=== PATIENT | male | born 1970 | race Caucasian/White ===

== ENCOUNTER → 2017-03-08 | Outpatient (CLI) | payer OTHER, BC ==
--- NOTE | 2017-03-08 10:42 | RADIOLOGY REPORT PS360 ---
CHEST(2 VIEWS-NOT PORTABLE) HISTORY: CHOKING EPISODE,SYNCOPE ORDERING PHYSICIAN: JEOVANNY MANUEL APRN PATIENT AGE: 46 years COMPARISON: None available FINDINGS: The cardiomediastinal silhouette and pulmonary vascularity are within normal limits. A nodular opacity is noted in the right lung base at the antral aspect of the right sixth rib measuring 16 x 9 mm. The remaining lungs are clear. Right hemidiaphragm is slightly elevated. No acute bony anomalies. IMPRESSION: 1. No acute finding. 2. Right basilar nodular opacity. Consider CT without and with contrast for more thorough evaluation
== END ==
LOC: RAD 09:23
DX: R09.89 Other specified symptoms and signs involving the circulatory and respiratory systems (principal); R55 Syncope and collapse

== ENCOUNTER 2017-03-26 21:12 | Observation (INO) | payer BC ==
[~2017-03-26] VITALS: Ht 167.6 cm; Wt 109.9 kg
[2017-03-26 21:21] VITALS: BP 180/109
[2017-03-26] MEDS ORDERED: AMLODIPINE BESY PO (21:28)
[2017-03-26 21:50] LABS: URINE BILIRUBIN - DIPSTICK NEGATIVE (NEG); URINE BLOOD 1+ (NEG)
[2017-03-26 21:53] LABS: HEMOGLOBIN 16.3 g/dL (14.1-18.0); LYMPH # 2.9 K/mm3 (0.7-4.5); LYMPH % 22.4 % (10-50)
[2017-03-26 22:13] LABS: URINE SQUAMOUS CELLS OC #/hpf (OCC)
--- NOTE | 2017-03-26 23:12 | RADIOLOGY REPORT PS360 ---
CT ABD PELVIS W/O CONTRAST HISTORY: PAIN epigastric pain past 3 days Patient Age: 46 years: Male Ordering Physician: Robinson Rush MD TECHNIQUE: Helical CT scans abdomen pelvis with no oral nor IV contrast utilized. COMPARISON :Previous CT abdomen and pelvis from November 2008 FINDINGS . Lung bases appear clear. Heart normal size. Liver. Very diffuse fatty changes no focal lesions. No bili ductal dilatation Spleen unremarkable. Pancreas satisfactory. Common duct appears normal to the head of pancreas. .* Gallbladder. 7 mm calcification in neck of gallbladder at cystic duct. Gallbladder is not dilated only mildly distended. No inflammation the gallbladder as of yet.. Warrants follow-up ultrasound preferably in a.m.. This still may be difficult to visualize but is clearly present. Correlation with clinical history required as well. His alkaline phosphatase elevated? Kidneys no definitive calculi.. There may be a small less than 1 mm calculus at the lower portion left kidney axial image 52. No urinary tract obstruction. No lesions evident. Pelvis. The bladder appears satisfactory. No pelvic masses or adenopathy. No retroperitoneal nor mesenteric adenopathy.No free fluid at the pelvis. GI tract. Minimal stool throughout the large bowel. Small bowel normal caliber no dilatation. No significant findings. Lung Appendix visualized & normal. Osseous but no significant findings. Early marginal osteophytes spine Minimal triangular density posterior to the umbilicus may reflect previous umbilical hernia repair correlation required. IMPRESSION: There is a 7 mm gallstone at gallbladder neck, likely within cystic duct itself. Gallbladder is not inflamed or significant dilated. Only mildly distended currently. . No additional calcified stones seen within gallbladder. Findings Warrants follow-up gallbladder ultrasound., (But this stone may be difficult to visualize on ultrasound due to far medial position within region of cystic duct, rather than floating within the gallbladder.)
--- NOTE | 2017-03-26 23:49 | Emergency Room Report ---
History of Present Illness Time Seen by [id number] Presenting Problem in Triage Pt arrived:Walked Presenting Problem:C/O EPIGASTRIC PAIN X 3 DAYS. DENIES VOMITING AND HAS FREQUENT BMS. HAS HAD THIS PROBLEM OFF AND ON FOR 1 YEAR. 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 N Clinical Suspician of Infection? N Mental Status: 1 - Regular (Normal Baseline) Sepsis Risk:Low Sepsis Risk Have you (or family members/close friends) recently traveled outside the [place]? N If Yes, where/when: Have you had exposure to infectious disease within the past month? N TB? Other? Specify: Comment Patient complains of epigastric pain for 3 days constantly. No vomiting, fever, radiation, urinary symptoms, constipation. Although he was not constipated he thought MiraLAX might relieve his symptoms and took some, but it did not relieve the pain. He has had this same pain off and on for a year, but usually he can sleep it off, it does not last this long. ALLERGIES Coded Allergies: No Known Allergies (03/26/17) Home Medications Reported Medications AMLODIPINE/VALSARTAN (Amlodipine-Valsartan 5-320 MG) 1 TAB PO DAILY #90 History Medical History General CAD? No Angina: No [place]: No Hypertension? No Hyperlipidemia? No CHF? No DVT? No PE? No COPD? Yes Asthma? No Anemia? No GERD? No Gastric ulcers? No GI Bleed? No Hernia? Yes Thyroid Problems? No Hypothyroidism? No CVA? No Seizures? No Diabetes? No Renal Insuffiency? No End Stage Renal Disease? No UTI? No Stones? Yes BPH? No GB Disease: No Nephritic Syndrome? No Asplenia? No Hepatitis? No Sickle Cell Disease? No Arthritis? No Migraines? No Cataracts? No Glaucoma? No MRSA? No HIV? No TB? No Anxiety? No Depression? No Cancer? No Immunization Hx DT/Tetanus > 10 YRS Flu NEVER Pneumonia NEVER Surgical Hx Previous Surgery?Y HRNIA REPAIR Family History Family Hx Diabetes No CAD Yes Hypertension Yes Hyperlipidemia Yes Cancer Yes TB No Social History Smoking Hx Smoker: Former Smoker Tobacco: No Packs/day 1 1/2 - 2 Packs Alcohol Alcohol: No Review of Systems All Other Systems Reviewed and Negative Constitutional denies fever Gastrointestinal abdominal pain, denies diarrhea, denies nausea, denies vomiting Genitourinary denies: dysuria, frequency. Physical Exam Vital Signs Vital Signs Date Time Temp Pulse Resp B/P Pulse O2 O2 Flow FiO2 Ox Delivery Rate 03/27 0015 61 20 160/92 97 03/27 0006 20 03/27 0005 20 03/26 2249 60 20 139/97 97 03/26 2121 98.8 60 20 180/109 97 General Appearance moderate distress, obese Eye Exam - bilateral eye normal exam, bilateral eye PERRL, bilateral eye EOMI Ear, Nose, Throat hearing grossly normal, normal ENT inspection Neck normal inspection, non-tender, supple, full range of motion Respiratory Status Yes: trachea midline, chest symmetrical, non tender chest. No: respiratory distress. Lung Sounds bilateral: normal breath sounds, lungs clear. 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 Yes Richard was queried for this patient? No Reason not queried - emergent pt cond=no time Results/Orders Laboratory Tests 03/26/175: Sodium 138, Potassium 3.9, Chloride 101, Carbon Dioxide 27, BUN 12, Creatinine 1.1, Estimated Creat Clear 126, Estimated GFR (MDRD) 71, Glucose 186 H, Calcium 8.6, Total Bilirubin 0.5, AST 13 L, ALT 41, Alkaline Phosphatase 147 H, Total Protein 7.6, Albumin 3.9, Globulin 3.7 H, Albumin/Globulin Ratio 1.1, Amylase 50, Lipase 118, WBC 13.1 H, RBC 5.39, Hgb 16.3, Hct 47.3, MCV 87.7, RDW 13.3, Plt Count 217, MPV 8.2, Gran % 69.3, Gran # 9.1 H, Lymphocytes % 22.4, Monocytes % 4.5, Eosinophils % 3.5, Basophils % 0.4, Lymphocytes # 2.9, Monocytes # 0.6, Eosinophils # 0.5 H, Basophils # 0.1, PUBS MCHC 34.5, MCH 30.3 , Urine Color YELLOW, Urine Appearance CLEAR, Urine pH 6.0, Ur Specific [place] >= 1.030, Urine Protein 2+ H, Urine Ketones NEGATIVE, Urine Blood 1+ H, Urine Nitrate NEGATIVE, Urine Bilirubin NEGATIVE, Urine Urobilinogen 0.2, Ur Leukocyte Esterase NEGATIVE, Urine RBC OCC, Urine WBC OCC, Ur Squamous Epith Cells OC, Urine Bacteria 1+, Urine Glucose 1+ H Current Medication Orders Sig/Lenin Start time Last Medication Dose Route Stop Time Status Admin Ertapenem 1 GM ONCE ONE 03/27 15 DC 03/27 Sodium Chloride 50 ML IV 03/274 0013 Ertapenem 0 .STK-MED ONE 03/27 11 DC .ROUTE Sodium Chloride 50 ML .STK-MED ONE 03/27 11 DC IV Ketorolac 0 .STK-MED ONE 03/27 8 DC Tromethamine .ROUTE Ondansetron HCl 0 .STK-MED ONE 03/27 8 DC .ROUTE Sodium Chloride 1,000 ML .STK-MED ONE 03/27 8 DC IV Hydromorphone HCl 0 .STK-MED ONE 03/27 0007 DC .ROUTE Hydromorphone HCl 1 MG ONCE ONE 03/265 DC 03/27 IV 03/26 2346 0006 Ketorolac 30 MG ONCE ONE 03/26 2345 DC 03/27 Tromethamine IV 03/26 2346 0005 Ondansetron HCl 4 MG ONCE ONE 03/26 2345 DC 03/27 IV 03/26 2346 0004 Sodium Chloride 1,000 ML .Q6H40M 03/26 234 DC 03/27 IV 03/27 0344 0004 Sodium Chloride 10 ML PRN PRN 03/26 2130 AC IV 03/27 2130 Orders Procedure Date/time Status CT ABD/PELVIS REQ 03/26 2130 Active IV SALINE LOCK 03/26 2130 Active URINALYSIS/COMPLETE 03/26 2130 Complete LIPASE 03/26 2130 Complete CBC WITH AUTO DIFF 03/26 2130 Complete CHEM 12 PROFILE 03/26 2130 Complete AMYLASE 03/26 2130 Complete XRAY/CT/US XRAY/CT/US CT abdomen, pelvis Comment CT scan interpreted by radiologist: 7 mm gallstone at gallbladder neck, likely within cystic duct. Gallbladder is not inflamed or significantly dilated. Only mildly distended currently. Progress - 12:20 AM: I have discussed the case with Dr. Vallecillo who agrees to admit the patient to the hospital. We discussed the patient's clinical information, including history, exam, laboratory and radiology results and ED course. Per hospital procedure, I will write temporary bridge inpatient orders on the patient. Specific orders requested by the admitting physician: Antibiotics, IV fluids, pain control Departure Departure Disposition Still a Patient Clinical Impression Primary Impression: Acute cholecystitis Secondary Impressions: Cholelithiasis Qualifiers: Cholelithiasis location: gallbladder Cholecystitis presence: with cholecystitis Cholecystitis acuity: acute Biliary obstruction: without biliary obstruction Qualified Code: K80.00 - Calculus of gallbladder with acute cholecystitis without obstruction Condition STABLE ED Critical Care Critical Care No at [id number]
[2017-03-27] VITALS (17 sets, daily range): BP systolic 117–152; BP diastolic 66–82
--- NOTE | 2017-03-27 08:28 | HISTORY AND PHYSICAL REPORT ---
History of Present Illness Chief Complaint: Abdominal pain History of Present Illness: This is a 46-year-old gentleman who presents emergency department overnight with increasing upper abdominal pain. He states that he has a history of intermittent abdominal pain "for a few years". He has been concern about "gallbladder trouble " for "quite a while". Over the past 3-4 days he has noticed increasing pain in the upper abdomen with mild nausea. No emesis. Some radiation to the back. No jaundice. No fevers. Evaluation of emergency department included a CT scan which revealed signs consistent with likely acute calculus cholecystitis. Past Medical History Reports: hypertension. Surgical History Previous Surgery?Y HRNIA REPAIR Allergies Coded Allergies: No Known Allergies (03/26/17) Medications: Reported Medications AMLODIPINE/VALSARTAN (Amlodipine-Valsartan 5-320 MG) 1 TAB PO DAILY #90 Family history Postive for: HTN. Smoking Hx Tobacco: No Smoker: Former Smoker Type: Cigarettes Packs/day: 1 1/2 - 2 Packs Are you/the child exposed to second-hand smoke: Yes Alcohol Alcohol: No Hx of Drug Use Drug Use? No Review of Systems Constitutional No: recent weight loss. Skin No: bruising. Immune/allergy No: anaphalaxis. Eyes No: discharge. ENT No: nose bleed. Respiratory No: pneumonia. Cardiovascular No: palpitations. GI Positive for: nausea. No: hematemeis, hematochezia, melena, vomitting. (male) No: hematuria. Musculoskeletal No: thoracic pain. Heme No: petechia. Endocrine No: polydipsia. Neurological No: change in LOC. Psychiatric No: anxious. Physical Exam VS/I&O Vital Signs Date Time Temp Pulse Resp B/P Pulse O2 O2 Flow FiO2 Ox Delivery Rate 03/27 0747 97.6 65 20 152/82 93 03/27 0738 20 03/27 0400 97.6 65 20 152/82 93 ROOM AIR 03/27 0207 58 03/27 0207 97.5 58 20 132/66 / 0207 97 ROOM AIR 03/27 0207 97.5 58 20 132/66 97 ROOM AIR 03/27 0043 98.8 61 20 160/92 97 03/27 0015 61 20 160/92 97 03/27 0006 20 03/27 0005 20 09/02 2249 60 20 139/97 97 09/02 2121 98.8 60 20 180/109 97 I&O 03/27 0700 Intake Total 735 Output Total Balance 735 Intake, IV 735 Patient 109.884 kg Weight Exam General appearance no acute distress Neck full ROM Respiratory no distress Cardiovascular regular rate and rhythm Abdomen no guarding (+ TTP in epig and RUQ), soft Extremities moves all, no edema, no evidence of DVT Musculoskeletal full ROM Neurological no motor deficit, normal speech Dx/assessment/plan Problem List 1. Acute cholecystitis 2. Cholelithiasis Code status: full code Discussed with: patient, Plan: Continue antibiotics Laparoscopic cholecystectomy-I have discussed the risks and benefits and he agrees to proceed at 0865
--- NOTE | 2017-03-27 09:56 | PHARMACY CLINIC NOTE ---
Patient Demographics Patient Demographics Admission date: 03/27/17 Date: 03/27/17 Time: 954 Allergies Coded Allergies: No Known Allergies (03/26/17) HEIGHT- FT: 5 IN: 6.00 K.884 VTE General Information Labs: Laboratory Tests 03/26 2135 Hematology Hgb (14.1 - 18.0 g/dL) 16.3 Hct (42.0 - 52.0 %) 47.3 Plt Count (142 - 424 K/mm3) 217 Disclaimer The following section includes nursing documentation that has been pulled in for pharmacy review. Patient's VTE score: 3 Patient's VTE Risk: LOW RISK Clinical trial participant? No VTE prophylaxis [id number] [id number] VTE prophylaxis ordered? Yes Type of prophylaxis/treatment: NISHA at 0956
--- NOTE | 2017-03-27 15:43 | Operative Note ---
Surgeon/Diagnoses Surgeon/Electro Optics Engineer(s) Date of procedure: 03/27/17 Surgeon: MD Justin Hernandez Diagnoses Pre-op diagnosis: Acute calculus cholecystitis Post-op diagnosis Same Procedure Procedure Procedure: Laparoscopic cholecystectomy Indications: SASCHA MATAMOROS is a 46 year-old Male with a history of severe upper abdominal pain and radiographic evidence of acute calculus cholecystitis. Radiographically , there was evidence of likely impacted stone in the cystic duct/infundibulum. Findings: Severe acute calculus cholecystitis Hydropic gallbladder Severe thickening and inflammatory change in and around the infundibulum with findings consistent with impacted stone Procedure Description: After informed consent was obtained, the patient was taken to the operating room and placed in the supine position. General anesthesia was induced and his abdomen was prepped and draped in a sterile fashion. A small incision was made in the LEFT upper quadrant and a Veress needle was placed in position. This was done secondary to his history of umbilical hernia repair. A 5 mm trocar was placed in the LEFT mid flank. Under direct visualization, a 5 mm supraumbilical trocar was placed in position. Two additional 5 mm trocars were placed in the RIGHT upper quadrant and an 11 mm trocar was placed in the subxiphoid position. The gallbladder was notably inflamed and the wall extremely thickened. Severe pericholecystic fat stranding was noted. A small otomy was made in the gallbladder and clear fluid escaped. The signs were consistent with hydrops. As the gallbladder was elevated the amount of inflammatory change and thickening increased in and around the infundibulum. Signs consistent with impacted stone were noted. The gallbladder was transected just above the infundibulum and Endoloops (2) were utilized to control the stump. The remaining gallbladder was elevated and removed by way of harmonic karie. It was placed in a retrieval bag and removed through the subxiphoid trocar site. The decision was made to place a number 10 Gera-Machado drain in the gallbladder fossa and this was exited through the RIGHT lateral trocar site. The drain was secured with interrupted silk suture. Fascia at the subxiphoid trocar site was reapproximated utilizing the alejandrina-close device. Pneumoperitoneum was released as all remaining trocars were removed. All wounds were irrigated and skin was closed with 4-0 Monocryl in a subcuticular fashion. Steri-Strips were applied. The patient's anesthetic agents were reversed and he was extubated prior to transfer to recovery. EBL (ml): 25 Anesthesia: GETA Complications: No immediate Specimens: Gallbladder and contents Disposition Disposition: Stable to recovery from where he will be transferred back to the floor. at 2551
--- NOTE | 2017-03-27 16:18 | Anesthesia Record ---
Anesthesia Record Part II Discharge time: 1640 Destination: Second Floor PACU nurse assessment review? Yes Patient is: Stable Anesthesia complications? No at 1617
--- NOTE | 2017-03-27 16:18 | Anesthesia Record ---
Anesthesia Record Part I Total IV fluids: 2000 EBL (ml): 25 Urine Output: 0 B/P: 142/79 % SaO2: 95 Pulse: 71 Resps: 16 Temp: 97.9 Patient is: Drowsy, Nasal O2, Stable Stable to PACU at: 1610 at 1617
[2017-03-28] VITALS (8 sets, daily range): BP systolic 133–178; BP diastolic 77–93
[2017-03-28 07:00] LABS: HEMOGLOBIN 15.2 g/dL (14.1-18.0); LYMPH # 1.9 K/mm3 (0.7-4.5); LYMPH % 11.4 % (10-50)
[2017-03-28 08:38] LABS: NEUTROPHILS 89 % (42-76)
--- NOTE | 2017-03-28 09:07 | POST-OP PROGRESS NOTE ---
See Addendum Post Op Subjective Data Patient is post-op day 1 Subjective data: Feels "a little bit better". Post op objective data Vitals,I&O,and Labs: Vital signs, intake and output,and available lab data for the last 24 hours is as noted below. Vital Signs Date Time Temp Pulse Resp B/P Pulse O2 O2 Flow FiO2 Ox Delivery Rate 03/28 0800 98.1 70 20 133/79 95 ROOM AIR / 0428 98.6 61 18 149/86 95 ROOM AIR / 0421 16 09/ 0227 2 / 0111 2 / 0109 2 / 0109 98.0 94 20 143/77 95 ROOM AIR 09/03 2345 98.3 100 16 131/80 97 2 09/ 2305 2 / 2245 98.6 96 18 133/78 96 2 09/03 2206 2 09/ 2145 98.1 74 16 135/76 95 2 09/03 2107 2 / 2056 18 09/03 2045 98.3 72 16 131/69 94 2 09/03 2012 2 09/03 1945 98.2 99 18 130/68 95 2 09/03 1915 98.2 97 18 121/73 93 2 09/03 1915 98.2 87 18 121/73 93 2 09/03 1845 2 09/03 1845 98.3 72 16 133/76 91 2 09/03 1823 16 09/03 1815 98.3 80 16 125/73 94 2 09/03 1745 98.0 77 16 123/66 94 2 09/03 1730 98.6 73 16 120/70 98 2 09/03 1719 97.9 09/03 1715 98.6 84 16 117/69 93 2 09/03 1713 98.5 71 16 136/77 94 2 09/03 1711 2 09/03 1700 98.5 71 16 136/77 94 2 09/03 1657 98.0 67 15 138/75 96 ROOM AIR 09/03 1650 98.0 63 15 119/70 96 OXYGEN 09/03 1640 97.9 77 19 133/72 95 OXYGEN 09/03 1630 97.9 76 15 140/75 92 OXYGEN 09/03 1620 97.9 76 15 147/80 91 OXYGEN 09/03 1617 97.9 71 16 142/79 95 09 1610 97.9 71 16 142/79 95 OXYGEN 03/27 1458 63 18 130/81 93 03/27 1143 18 03/27 1500 03/27 2300 03/28 0700 Intake Total 888 1561 Output Total 1575 1865 Balance -687 -304 Intake, IV 168 1561 Intake, Oral 720 Intake, Tube 0 Irrigant Output, 0 Emesis Output, 0 Estimated Blood Loss Output, Other 25 15 Output, Urine 1550 1850 Patient 109.884 kg Weight Laboratory Tests Test Result Date Time Chemistry Sodium (mmoL/L) 140 03/28 614 Potassium (mmoL/L) 4.2 03/28 614 Chloride (mmoL/L) 104 03/28 614 Carbon Dioxide (mmoL/L) 28 03/28 614 BUN (mg/dL) 9 03/28 614 Creatinine (mg/dL) 0.9 03/28 614 Estimated Creat Clear (ML/MIN) 156 03/28 614 Estimated GFR (MDRD) (ML/MIN) 90 03/28 614 Glucose (mg/dL) 139 03/28 614 Calcium (mg/dL) 8.3 03/28 614 Total Bilirubin (mg/dL) 0.4 03/28 614 AST (U/L) 48 03/28 06 ALT (U/L) 82 03/28 614 Alkaline Phosphatase (U/L) 120 03/28 614 Total Protein (gm/dL) 6.7 03/28 614 Albumin (gm/dL) 3.2 03/28 614 Globulin (gm/dL) 3.5 03/28 614 Albumin/Globulin Ratio 0.9 03/28 614 Amylase (U/L) 50 03/26 2135 Lipase (U/L) 118 03/26 2135 Hematology WBC (K/MM3) 16.6 03/28 614 RBC (M/mm3) 5.21 03/28 614 Hgb (g/dL) 15.2 03/28 614 Hct (%) 46.1 03/28 614 MCV (fl) 88.3 03/28 614 RDW (%) 13.0 03/28 614 Plt Count (K/mm3) 212 03/28 614 MPV (fl) 8.3 09/04 0614 Gran % (%) 84.5 03/28 614 Gran # (K/mm3) 14.1 03/28 614 Total Counted (#CELLS) 100 03/28 614 Lymphocytes % (%) 11.4 03/28 614 Monocytes % (%) 4.0 03/28 614 Eosinophils % (%) 0.1 03/28 614 Basophils % (%) 0.1 03/28 614 Neutrophils (%) 89 03/28 614 Band Neutrophils (%) 3 03/28 614 Lymphocytes (Manual) (%) 6 03/28 614 Lymphocytes # (K/mm3) 1.9 03/28 614 Monocytes (Manual) (%) 1 03/28 614 Monocytes # (K/mm3) 0.7 03/28 614 Eosinophils # (K/mm3) 0.0 03/28 614 Basophils # (K/MM3) 0.0 03/28 614 Atypical Lymphocytes (%) 1 03/28 614 Platelet Estimate NORMAL 03/28 614 Hypochromasia 1+ 03/28 614 PUBS MCHC (g/dl) 33.0 03/28 614 Immunology MCH (pg) 29.2 03/28 614 Urines Urine Color YELLOW 03/26 2135 Urine Appearance CLEAR 03/26 2135 Urine pH 6.0 03/26 2135 Ur Specific [place] >= 1.030 03/26 2135 Urine Protein (mg/dL) 2+ 03/26 2135 Urine Ketones (mg/dL) NEGATIVE 03/26 2135 Urine Blood 1+ 03/26 2135 Urine Nitrate NEGATIVE 03/26 2135 Urine Bilirubin NEGATIVE 03/26 2135 Urine Urobilinogen (E.U./dL) 0.2 03/26 2135 Ur Leukocyte Esterase NEGATIVE 03/26 2135 Urine RBC (rbc/hpf) OCC 03/26 2135 Urine WBC (wbc/hpf) OCC 03/26 2135 Ur Squamous Epith Cells (#/hpf) OC 03/26 2135 Urine Bacteria 1+ 03/26 2135 Urine Glucose 1+ 03/26 2135 Physical Exam VS/I&O Vital Signs Date Time Temp Pulse Resp B/P Pulse O2 O2 Flow FiO2 Ox Delivery Rate 03/28 800 98.1 70 20 133/79 95 ROOM AIR 03/28 428 98.6 61 18 149/86 95 ROOM AIR 09/04 0421 16 09/04 0227 2 09/04 0111 2 09/04 0109 2 09/04 0109 98.0 94 20 143/77 95 ROOM AIR 09/03 2345 98.3 100 16 131/80 97 2 09/03 2305 2 09/03 2245 98.6 96 18 133/78 96 2 09/03 2206 2 09/03 2145 98.1 74 16 135/76 95 2 09/03 2107 2 09/03 2055 18 09/03 2044 98.3 72 16 131/69 94 2 09/03 2012 2 09/03 1945 98.2 99 18 130/68 95 2 09/03 1915 98.2 97 18 121/73 93 2 09/03 1915 98.2 87 18 121/73 93 2 09/03 1845 2 09/03 1845 98.3 72 16 133/76 91 2 09/03 1823 16 09/03 1815 98.3 80 16 125/73 94 2 09/03 1745 98.0 77 16 123/66 94 2 09/03 1730 98.6 73 16 120/70 98 2 09/03 1719 97.9 09/03 1715 98.6 84 16 117/69 93 2 09/03 1713 98.5 71 16 136/77 94 2 09/03 1711 2 09/03 1700 98.5 71 16 136/77 94 2 09/03 1657 98.0 67 15 138/75 96 ROOM AIR 09/03 1650 98.0 63 15 119/70 96 OXYGEN 09/03 1640 97.9 77 19 133/72 95 OXYGEN 09/03 1630 97.9 76 15 140/75 92 OXYGEN 09/03 1620 97.9 76 15 147/80 91 OXYGEN 09/03 1617 97.9 71 16 142/79 95 09/03 1610 97.9 71 16 142/79 95 OXYGEN 09/03 1458 63 18 130/81 93 09/03 1143 18 I&O 09/04 0700 Intake Total 2449 Output Total 3440 Balance -991 Intake, IV 1729 Intake, Oral 720 Intake, Tube 0 Irrigant Output, 0 Emesis Output, 0 Estimated Blood Loss Output, Other 40 Output, Urine 3400 Patient 109.884 kg Weight Exam General appearance no acute distress Respiratory no distress Cardiovascular regular rate and rhythm Abdomen soft (no erythema) Post op patient plan Diagnoses: Severe acute calculus cholecystitis-overall, doing fairly well status post cholecystectomy Leukocytosis Plan: Advance diet, Ambulate, Antibiotics, repeat complete blood count at 1600 This inpt stay is expected to cross 2 MNs from start of care No Additional data: Possible discharge later today or early tomorrow pending results of laboratory evaluation and pending ongoing improvement in condition. at 0906
[2017-03-28 16:05] LABS: HEMOGLOBIN 14.7 g/dL (14.1-18.0); LYMPH # 3.1 K/mm3 (0.7-4.5); LYMPH % 17.8 % (10-50)
[2017-03-29 04:00] VITALS: BP 155/91
[2017-03-29 07:01] LABS: HEMOGLOBIN 14.5 g/dL (14.1-18.0); LYMPH # 3.9 K/mm3 (0.7-4.5); LYMPH % 27.5 % (10-50)
--- NOTE | 2017-03-29 08:10 | POST-OP PROGRESS NOTE ---
Post Op Subjective Data Patient is post-op day 2 Subjective data: Feels "fine". Somewhat constipated. Post op objective data Vitals,I&O,and Labs: Vital signs, intake and output,and available lab data for the last 24 hours is as noted below. Vital Signs Date Time Temp Pulse Resp B/P Pulse O2 O2 Flow FiO2 Ox Delivery Rate 03/29 0459 20 03/29 0400 97.9 71 20 155/91 95 ROOM AIR 03/28 2000 98.2 70 20 148/81 96 ROOM AIR 03/28 1935 98.2 71 20 148/81 96 03/28 1651 20 03/28 1600 98.3 71 18 162/90 97 ROOM AIR 03/28 1215 20 03/28 1200 98.4 72 18 178/93 95 ROOM AIR 03/28 1002 98.1 70 20 133/79 95 / 1500 03/28 2300 03/29 0700 Intake Total 240 120 545 Output Total 30 Balance 240 90 545 Intake, IV 545 Intake, Oral 240 120 Output, Other 30 Laboratory Tests Test Result Date Time Chemistry Sodium (mmoL/L) 141 03/29 06 Potassium (mmoL/L) 3.8 03/29 630 Chloride (mmoL/L) 105 03/29 06 Carbon Dioxide (mmoL/L) 29 03/29 630 BUN (mg/dL) 10 03/29 630 Creatinine (mg/dL) 0.9 03/29 630 Estimated Creat Clear (ML/MIN) 156 03/29 630 Estimated GFR (MDRD) (ML/MIN) 90 03/29 630 Glucose (mg/dL) 104 03/29 630 Calcium (mg/dL) 8.3 03/29 630 Total Bilirubin (mg/dL) 0.5 03/29 630 AST (U/L) 26 03/29 06 ALT (U/L) 65 03/29 630 Alkaline Phosphatase (U/L) 114 03/29 630 Total Protein (gm/dL) 6.5 03/29 630 Albumin (gm/dL) 3.2 03/29 630 Globulin (gm/dL) 3.3 03/29 630 Albumin/Globulin Ratio 1.0 03/29 630 Amylase (U/L) 50 03/26 2135 Lipase (U/L) 118 03/26 213 Hematology WBC (K/MM3) 14.1 03/29 630 RBC (M/mm3) 4.88 03/29 630 Hgb (g/dL) 14.5 03/29 630 Hct (%) 43.3 03/29 630 MCV (fl) 88.8 03/29 630 RDW (%) 13.3 03/29 630 Plt Count (K/mm3) 208 03/29 630 MPV (fl) 7.9 03/29 630 Gran % (%) 64.9 03/29 630 Gran # (K/mm3) 9.2 03/29 630 Total Counted (#CELLS) 100 03/28 614 Lymphocytes % (%) 27.5 03/29 630 Monocytes % (%) 5.0 03/29 630 Eosinophils % (%) 2.4 03/29 630 Basophils % (%) 0.2 03/29 630 Neutrophils (%) 89 03/28 614 Band Neutrophils (%) 3 03/28 614 Lymphocytes (Manual) (%) 6 03/28 614 Lymphocytes # (K/mm3) 3.9 03/29 630 Monocytes (Manual) (%) 1 03/28 614 Monocytes # (K/mm3) 0.7 03/29 630 Eosinophils # (K/mm3) 0.4 03/29 630 Basophils # (K/MM3) 0.0 03/29 630 Atypical Lymphocytes (%) 1 03/28 614 Platelet Estimate NORMAL 03/28 614 Hypochromasia 1+ 03/28 614 PUBS MCHC (g/dl) 33.5 03/29 630 Immunology MCH (pg) 29.7 03/29 630 Urines Urine Color YELLOW 03/26 2135 Urine Appearance CLEAR 03/26 2135 Urine pH 6.0 03/26 2135 Ur Specific [place] >= 1.030 03/26 2135 Urine Protein (mg/dL) 2+ 03/26 2135 Urine Ketones (mg/dL) NEGATIVE 03/26 2135 Urine Blood 1+ 03/26 2135 Urine Nitrate NEGATIVE 03/26 2135 Urine Bilirubin NEGATIVE 03/26 2135 Urine Urobilinogen (E.U./dL) 0.2 03/26 2135 Ur Leukocyte Esterase NEGATIVE 03/26 2135 Urine RBC (rbc/hpf) OCC 03/26 2135 Urine WBC (wbc/hpf) OCC 03/26 2135 Ur Squamous Epith Cells (#/hpf) OC 03/26 2135 Urine Bacteria 03/26 Urine Glucose 03/26 Physical Exam VS/I&O Vital Signs Date Time Temp Pulse Resp B/P Pulse O2 O2 Flow FiO2 Ox Delivery Rate 03/29 0459 20 03/29 0400 97.9 71 20 155/91 95 ROOM AIR 03/28 2000 98.2 70 20 148/81 96 ROOM AIR 03/28 1935 98.2 71 20 148/81 96 03/28 1651 20 03/28 1600 98.3 71 18 162/90 97 ROOM AIR 03/28 1215 20 03/28 1200 98.4 72 18 178/93 95 ROOM AIR 03/28 1002 98.1 70 20 133/79 95 I&O 03/29 0700 Intake Total 905 Output Total 30 Balance 875 Intake, IV 545 Intake, Oral 360 Output, Other 30 Exam General appearance no acute distress Respiratory no distress Cardiovascular regular rate and rhythm Abdomen soft (incisions c/d/i) Post op patient plan Diagnoses: Acute calculus cholecystitis-overall, doing well status post cholecystectomy Postoperative leukocytosis-improving Plan: d/c home This inpt stay is expected to cross 2 MNs from start of care Yes at 0809
[2017-03-29] MEDS ORDERED: NORCO 325 MG-51 TAB PO (08:13)
[2017-03-29] MEDS ORDERED: AUGMENTIN 875-1 EACH PO (08:13)
--- NOTE | 2017-03-29 08:18 | Discharge Summary Report ---
General Admit date: 03/27/17 Discharge date: 03/29/17 Admission Dx: Acute calculus cholecystitis Discharge Dx: Same Hospital course: The patient was admitted to surgical service after presenting with upper abdominal pain and nausea. He had radiographic evidence consistent with likely acute calculus cholecystitis. He underwent laparoscopic cholecystectomy. Intraoperative findings revealed severe cholecystitis with likely early gangrenous changes. Please see operative report for detail. Postoperatively, he progressed fairly well. He remained afebrile. He did develop a slight worsening of his leukocytosis during the first day postoperatively; however, this was resolving by postoperative day 2. On the morning of postoperative day 2 he was deemed appropriate for discharge. At the time of discharge he was afebrile with stable and normal vital signs. He was ambulating without difficulty and tolerating a diet. Condition at discharge: improved Problem List Medical Problems Acute cholecystitis Cholelithiasis Allergies Coded Allergies: No Known Allergies (03/27/17) Med Rec DC summary Medications Reported Medications AMLODIPINE/VALSARTAN (Amlodipine-Valsartan 5-320 MG) 1 TAB PO DAILY #90 Txs and Procedures Treatments and Procedures: Laparoscopic cholecystectomy Labs: Laboratory Tests 03/29/17 0630: Sodium 141, Potassium 3.8, Chloride 105, Carbon Dioxide 29, BUN 10, Creatinine 0.9, Estimated Creat Clear 156, Estimated GFR (MDRD) 90, Glucose 104, Calcium 8.3 L, Total Bilirubin 0.5, AST 26, ALT 65, Alkaline Phosphatase 114, Total Protein 6.5, Albumin 3.2 L, Globulin 3.3 H, Albumin/Globulin Ratio 1.0 L, WBC 14.1 H, RBC 4.88, Hgb 14.5, Hct 43.3, MCV 88.8, RDW 13.3, Plt Count 208, MPV 7.9, Gran % 64.9, Gran # 9.2 H, Lymphocytes % 27.5, Monocytes % 5.0, Eosinophils % 2.4, Basophils % 0.2, Lymphocytes # 3.9, Monocytes # 0.7, Eosinophils # 0.4, Basophils # 0.0, PUBS MCHC 33.5, MCH 29.7 03/28/17 1558: WBC 17.4 H, RBC 5.03, Hgb 14.7, Hct 44.2, MCV 87.9, RDW 13.3, Plt Count 202, MPV 8.2, Gran % 76.6, Gran # 13.3 H, Lymphocytes % 17.8, Monocytes % 4.4, Eosinophils % 1.0, Basophils % 0.2, Lymphocytes # 3.1, Monocytes # 0.8, Eosinophils # 0.2, Basophils # 0.0, PUBS MCHC 33.3, MCH 29.3 03/28/17 0614: Sodium 140, Potassium 4.2, Chloride 104, Carbon Dioxide 28, BUN 9, Creatinine 0.9, Estimated Creat Clear 156, Estimated GFR (MDRD) 90, Glucose 139 H, Calcium 8.3 L, Total Bilirubin 0.4, AST 48 H, ALT 82 H, Alkaline Phosphatase 120 H, Total Protein 6.7, Albumin 3.2 L, Globulin 3.5 H, Albumin/Globulin Ratio 0.9 L, WBC 16.6 H, RBC 5.21, Hgb 15.2, Hct 46.1, MCV 88.3, RDW 13.0, Plt Count 212, MPV 8.3, Gran % 84.5 H, Gran # 14.1 H, Total Counted 100, Lymphocytes % 11.4, Monocytes % 4.0, Eosinophils % 0.1, Basophils % 0.1, Neutrophils 89 H, Band Neutrophils 3, Lymphocytes (Manual) 6 L, Lymphocytes # 1.9, Monocytes (Manual) 1 L, Monocytes # 0.7, Eosinophils # 0.0, Basophils # 0.0, Atypical Lymphocytes 1, Platelet Estimate NORMAL, Hypochromasia 1+, PUBS MCHC 33.0, MCH 29.2 03/26/175: Sodium 138, Potassium 3.9, Chloride 101, Carbon Dioxide 27, BUN 12, Creatinine 1.1, Estimated Creat Clear 126, Estimated GFR (MDRD) 71, Glucose 186 H, Calcium 8.6, Total Bilirubin 0.5, AST 13 L, ALT 41, Alkaline Phosphatase 147 H, Total Protein 7.6, Albumin 3.9, Globulin 3.7 H, Albumin/Globulin Ratio 1.1, Amylase 50, Lipase 118, WBC 13.1 H, RBC 5.39, Hgb 16.3, Hct 47.3, MCV 87.7, RDW 13.3, Plt Count 217, MPV 8.2, Gran % 69.3, Gran # 9.1 H, Lymphocytes % 22.4, Monocytes % 4.5, Eosinophils % 3.5, Basophils % 0.4, Lymphocytes # 2.9, Monocytes # 0.6, Eosinophils # 0.5 H, Basophils # 0.1, PUBS MCHC 34.5, MCH 30.3 , Urine Color YELLOW, Urine Appearance CLEAR, Urine pH 6.0, Ur Specific [place] >= 1.030, Urine Protein 2+ H, Urine Ketones NEGATIVE, Urine Blood 1+ H, Urine Nitrate NEGATIVE, Urine Bilirubin NEGATIVE, Urine Urobilinogen 0.2, Ur Leukocyte Esterase NEGATIVE, Urine RBC OCC, Urine WBC OCC, Ur Squamous Epith Cells OC, Urine Bacteria 1+, Urine Glucose 1+ H at 0818
[2017-03-29 08:58] VITALS: BP 155/91
== END 2017-03-29 08:55 | disposition home or self-care (01) ==
LOC: ER 21:12 → 2ND 03-27 00:28 → ER 03-27 00:28 → 2ND 03-27 00:53
PROVIDERS: Emergency Medicine; Surgery
PROC: 0FT44ZZ Resection of Gallbladder, Percutaneous Endoscopic Approach (ICD-10-PCS; principal; 2017-03-27 13:31)
DX: K80.00 Calculus of gallbladder with acute cholecystitis without obstruction (principal)
CPT/HCPCS: G0378; J0131; J1335; J2405; J2710

== ENCOUNTER 2017-04-25 11:08 | Emergency (ER) | payer BC ==
[~2017-04-25] VITALS: Ht 167.6 cm; Wt 108.9 kg
--- NOTE | 2017-04-25 11:35 | Emergency Room Report ---
History of Present Illness Time Seen by 1120 Presenting Problem in Triage Pt arrived:Wheelchair Presenting Problem:stomach discomfort; states gets relief when he burps; recently (4 weeks prior) had gb surgery Onset of symptoms date/time:/ or onset unknown for:MEDICAL HX UNKNOWN Treatment Prior to Arrival: [employer] Provided by: Sepsis Risk Assessment: Temp: 98.0 B/P: 158/116 MAP: 130 Pulse: 85 Resp: 18 Recent fever? N Clinical Suspician of Infection? N Mental Status: 1 - Regular (Normal Baseline) Sepsis Risk:Low Sepsis Risk Have you (or family members/close friends) recently traveled outside the [place]? N If Yes, where/when: Have you had exposure to infectious disease within the past month? TB? Other? Specify: Source patient, RN notes reviewed Exam Limitations no limitations Comment Pt had his gallbladder removed by Dr. Vallecillo around Mar 27 or and the pt says he was told they had to leave part of a gallstone behind. He states he has felt "sick" ever since he went home in his entire abdomen and has had some vomiting with ? blood but has not noticed any blood in stool. He states his urine has turned a lot darker as well and he appears to be jaundiced. Cardiac Chest Pain Chest pain indicative of cardiac No ALLERGIES Coded Allergies: No Known Allergies (04/25/17) Home Medications Active Scripts Amoxicillin/Potassium Clav (Augmentin 875-125 Tablet) 1 EACH PO BID #10 TAB Prov: 03/29/17 HYDROCODONE/ACETAMINOPHEN ([place] 5-325 Tablet) 1-2 TAB PO Q4HP PRN Pain #13 TAB Prov: 03/29/17 Reported Medications AMLODIPINE/VALSARTAN (Amlodipine-Valsartan 5-320 MG) 1 TAB PO DAILY #90 History Medical History General CAD? No Angina: No [place]: No Hypertension? No Hyperlipidemia? No CHF? No DVT? No PE? No COPD? Yes Asthma? No Anemia? No GERD? No Gastric ulcers? No GI Bleed? No Hernia? Yes Thyroid Problems? No Hypothyroidism? No CVA? No Seizures? No Diabetes? No Renal Insuffiency? No End Stage Renal Disease? No UTI? No Stones? Yes BPH? No GB Disease: No Nephritic Syndrome? No Asplenia? No Hepatitis? No Sickle Cell Disease? No Arthritis? No Migraines? No Cataracts? No Glaucoma? No MRSA? No HIV? No TB? No Anxiety? No Depression? No Cancer? No Immunization Hx Ped.Immunizations UTD Yes DT/Tetanus Unknown Flu NEVER Pneumonia Refuses Surgical Hx Previous Surgery?Y HRNIA REPAIR Cholecystectomy Family History Family Hx Diabetes No CAD Yes Hypertension Yes Hyperlipidemia Yes Cancer Yes TB No Social History Smoking Hx Smoker: Former Smoker Tobacco: Yes Type Cigarettes Packs/day 1 1/2 - 2 Packs Alcohol Alcohol: No Review of Systems All Other Systems Reviewed and Negative Constitutional see HPI Gastrointestinal see HPI Genitourinary see HPI. Physical Exam Vital Signs Vital Signs Date Time Temp Pulse Resp B/P Pulse O2 O2 Flow FiO2 Ox Delivery Rate 04/25 1240 18 04/25 1116 98.0 85 18 158/116 99 General Appearance normal appearance, WD/WN, no apparent distress Eye Exam - bilateral eye icterus Ear, Nose, Throat hearing grossly normal, normal ENT inspection Respiratory Status No: respiratory distress. Lung Sounds bilateral: normal breath sounds. Cardiovascular normal exam, regular rate/rhythm Gastrointestinal normal bowel sounds, normal exam, non tender, no guarding Neurologic alert, procedures analyst II-XII nml as tested, normal exam Medical Decision Making LABS/Meds/Orders Pt receiving controlled substance in ED? Yes Richard was queried for this patient? Yes Reference #: [id number] Results/Orders Laboratory Tests 04/25/17 1200: Lactic Acid 0.2 L 04/25/17 1200: Sodium 136, Potassium 3.9, Chloride 99, Carbon Dioxide 26, BUN 13, Creatinine 0.8, Estimated Creat Clear 174, Estimated GFR (MDRD) 103, Glucose 105, Calcium 9.1, Total Bilirubin 7.2 H, AST 200 H, ALT 539 *H, Alkaline Phosphatase 299 H , Total Protein 7.6, Albumin 3.8, Globulin 3.8 H, Albumin/Globulin Ratio 1.0 L , Amylase 29, Lipase 85, PT 10.8, INR 1.00, APTT 25.0, WBC 7.6, RBC 5.53, Hgb 16.0, Hct 48.7, MCV 88.0, RDW 13.1, Plt Count 169, MPV 8.5, Gran % 69.3, Gran # 5.3, Lymphocytes % 22.0, Monocytes % 3.7, Eosinophils % 4.8, Basophils % 0.3, Lymphocytes # 1.7, Monocytes # 0.3, Eosinophils # 0.4, Basophils # 0.0, PUBS MCHC 33.0, MCH 29.0 Current Medication Orders Sig/Lenin Start time Last Medication Dose Route Stop Time Status Admin Iopamidol 75 ML ONCE ONE 04/25 1245 UNV 04/25 IV 04/25 1246 1238 Sodium Chloride 10 ML ONCE ONE 04/25 1245 UNV 04/25 IV 04/25 1246 1238 Ondansetron HCl 0 .STK-MED ONE 04/25 1221 DC .ROUTE Sodium Chloride 1,000 ML .STK-MED ONE 04/25 1221 DC IV Hydromorphone HCl 0 .STK-MED ONE 04/25 1220 DC .ROUTE Hydromorphone HCl 0.5 MG ONCE ONE 04/25 1145 DC 04/25 IV 04/25 1146 1240 Ondansetron HCl 4 MG ONCE ONE 04/25 1145 DC 04/25 IV 04/25 1146 1239 Sodium Chloride 10 ML PRN PRN 04/25 1145 AC IV 04/26 1144 Sodium Chloride 1,000 ML .Q1H1M 04/25 1145 DC 04/25 IV 04/25 1245 1240 Sodium Chloride 10 ML PRN PRN 04/25 1145 AC IV 04/26 1144 Sodium Chloride 1,000 ML .Q4H 04/25 1145 AC IV 04/25 1544 Sodium Chloride 10 ML PRN PRN 04/25 1145 AC IV 04/26 1144 Orders Procedure Date/time Status DIET-NOTHING BY MOUTH 04/25 D Active PARTIAL THROMBOPLASTIN TIME 04/25 1259 Complete PROTHROMBIN TIME 04/25 1259 Complete CULTURE, BLOOD 04/[address] ABD/PELVIS REQ 04/25 1147 Active IV SALINE LOCK 04/25 1147 Active CULTURE, BLOOD 04/25 1147 Active URINALYSIS/COMPLETE 04/25 1147 Active LIPASE 04/25 1147 Complete LACTIC ACID 04/25 1147 Complete CBC WITH AUTO DIFF 04/25 1147 Complete CHEM 12 PROFILE 04/25 1147 Complete AMYLASE 04/25 1147 Complete XRAY/CT/US XRAY/CT/US CT abdomen, pelvis CT interpretation by reviewed by me Time results known: 1318 CT Results gallstone in distal common bile duct with dilation of biliary tree Departure Departure Time of Disposition 1322 Disposition DC/XFER from ER to [facility] Clinical Impression Primary Impression: Obstructive jaundice Secondary Impressions: Cholangitis due to bile duct calculus with obstruction Condition STABLE Additional Instructions Being transferred to [facility] to the Hospitalist Service, per Dr. Talbert and will be seen by Dr. Quinteros this evening for ERCP and stone removal. Pt advised to stay NPO Discharge Counseling Counseled pt/family regarding diagnosis, test results, follow up needs ED Critical Care Critical Care No If Critical Care minutes are documented, the time involved in the performance of seperately reportable procedures was not counted toward critical care time documented. I directly delivered medical care to this critically ill and/or injured patient. Timely evaluation and treatment was necessary to address the significant organ system(s) dysfunction present in this patient. at 1324
[2017-04-25 12:20] LABS: LYMPH # 1.7 K/mm3 (0.7-4.5)
--- NOTE | 2017-04-25 13:13 | RADIOLOGY REPORT PS360 ---
CT ABD PELVIS W/ CONTRAST CLINICAL INDICATION: Abdominal pain and jaundice ABD PAIN, JAUNDICE ORDERING PHYSICIAN: Gissell Blanca MD PATIENT AGE: 46 years COMPARISON: 03/26/2017 TECHNIQUE: Axial images obtained with sagittal and coronal reformats. PROCEDURE: Oral Contrast: None IV Contrast: 75 mL of Isovue-370. FINDINGS: The lung bases are clear. There is mild diffuse fatty liver. No focal liver lesion is evident. There is mild intrahepatic biliary dilatation. There has been an interval cholecystectomy with postsurgical changes at the cholecystectomy site. A small fluid collection is present in the gallbladder fossa measuring 2.6 x 0.9 cm and may be related to a small seroma/postsurgical change. There is calcification present in the region of the distal common bile duct measuring 8 mm consistent with a common bile duct stone. There is mild dilatation of the common bile duct, common hepatic duct, and cystic duct remnant with the common hepatic duct measuring up to 9.5 mm. The spleen, adrenal glands, and pancreas are unremarkable. No renal calculi or hydronephrosis. There is some thickening of the fat deep to the umbilical region and may be related to postsurgical changes. Unremarkable appendix. No evidence of intestinal obstruction or free air. IMPRESSION: 1. Choledocholithiasis. An 8 mm stone is present in the distal aspect of the common bile duct near or at the ampulla of Vater. There is mild intra and extrahepatic biliary dilatation with mild prominence of the cystic duct remnant. 2. Small amount fluid is noted in the gallbladder fossa along the inferior surface of the liver at this region probably related to postsurgical changes. Biloma or abscess is felt to be less likely but not entirely excluded by CT
--- NOTE | 2017-04-25 13:32 | CONSULT NOTE ---
Standard Demographics Patient Demo Date of Consultation: 04/25/17 Referring Provider: Evangelist Reason for Consultation: abdominal pain, abnormal laboratory studies Allergies: Coded Allergies: No Known Allergies (04/25/17) History of Present Illness Chief Complaint: Abdominal pain and nausea History of Present Illness: Patient is a 46-year-old white male who underwent laparoscopic cholecystectomy for acute calculus cholecystitis on 03/27/[address] Vallecillo. He was found to have quite an inflamed gallbladder. He did convalesce was discharged home with CHAN drain in place in the subhepatic space and was seen in the office as a follow-up with scant serous output and have the drain removed about a week after surgery. He subsequently him followed up with Dr. Vallecillo in the office about 16 days postoperatively and was doing well. 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 He was advised to report to the emergency department for laboratory studies and imaging. He underwent lab studies which revealed findings consistent with biliary obstruction with a bilirubin of 7.2, alkaline phosphatase 299, AST 200, ALT 539. Normal pancreatic enzymes are normal white blood cell count and normal coagulation profile. He had a CT scan performed which revealed dilated common bile duct with 8 mm common duct stone at the ampulla. Surgery was contacted. Past Medical History Reports: hypertension. Surgical History Previous Surgery?Y HRNIA REPAIR Allergies Coded Allergies: No Known Allergies (04/25/17) Medications: Active Scripts Amoxicillin/Potassium Clav (Augmentin 875-125 Tablet) 1 EACH PO BID #10 TAB Prov: 03/29/17 HYDROCODONE/ACETAMINOPHEN ([place] 5-325 Tablet) 1-2 TAB PO Q4HP PRN Pain #13 TAB Prov: 03/29/17 Reported Medications AMLODIPINE/VALSARTAN (Amlodipine-Valsartan 5-320 MG) 1 TAB PO DAILY #90 Smoking Hx Tobacco: Yes Smoker: Former Smoker Type: Cigarettes Packs/day: 1 1/2 - 2 Packs Are you/the child exposed to second-hand smoke: Yes Alcohol Alcohol: No Hx of Drug Use Drug Use? No Review of Systems Constitutional Positive for: fatigue, lethargy, malaise, weak. No: chills. Skin No: abrasions. Immune/allergy No: anaphalaxis. Eyes No: vision loss. ENT No: hearing loss. Respiratory No: shortness of air. Cardiovascular No: chest pain. GI Positive for: abdomen. (male) No: hematuria. Musculoskeletal No: extremity swelling. Neurological No: change in LOC. Physical Exam Exam General appearance no acute distress Respiratory clear to auscultation Cardiovascular normal heart sounds Abdomen no guarding, soft Findings/Data Patient appears mildly jaundiced. No acute distress. Abdomen soft without any significant tenderness or guarding or rebound. Plan Plan: Patient has findings of obstructive jaundice with choledocholithiasis without pancreatitis or cholangitis. I discussed the case with Dr. Quinteros, gastroenterology who will make arrangements for ERCP with stone extraction this afternoon. Patient is to be transferred to [facility] for said procedure. at 1332
[2017-04-25 14:17] VITALS: BP 140/75
--- OUTSIDE RECORDS SUMMARY | 2017-05-05 03:00 | External Medical Summary Rpt | CCD ---
Author Author [facility] Address Unknown Phone Purpose Continuity of Care Document - through 2016
--- OUTSIDE RECORDS SUMMARY | 2017-05-05 03:00 | External Medical Summary Rpt | CCD ---
Demographics Home Phone Preferred Language Algerian Marital Status Unknown Gnosticism Affiliation Unknown Race Unknown Ethnic Group Unknown Author Author , [facility] Address Unknown Phone [email or web address] Immunization Name Date Rout CVX Reac Dose Comm Prov Is Faci e tion ent ider Refu lity Give sed n Tdap 05-2 115 999 Hist 1050 No 1050 , 7-20 oric 0 0 Adso 16 al rbed Info rmat ion - Sour ce Unsp ecif ied Td 03-0 Intr 9 999 Hist H196 No H196 (ravindra 8-19 amus oric lt), 97 cula al r Info adso rmat rbed ion - Sour ce Unsp ecif ied
--- OUTSIDE RECORDS SUMMARY | 2017-05-05 03:00 | External Medical Summary Rpt | CCD ---
Author Author [facility] Address Unknown Phone [email or web address] Purpose Continuity of Care Document - through 2016
--- OUTSIDE RECORDS SUMMARY | 2017-05-05 03:00 | External Medical Summary Rpt | CCD ---
Demographics Home Phone Preferred Language Filipino Marital Status Unknown Rastafari Affiliation Unknown Race Unknown Ethnic Group Unknown Author Author , [facility] Address Unknown Phone [email or web address] Immunization Name Date Rout CVX Reac Dose [...]
--- OUTSIDE RECORDS SUMMARY | 2017-05-05 03:00 | External Medical Summary Rpt ---
Author Author [facility], [facility] Organization [employer] Address Unknown Phone Unavailable
--- OUTSIDE RECORDS SUMMARY | 2017-05-05 03:00 | External Medical Summary Rpt ---
Author Author [facility], [facility] Organization [employer] Address Unknown Phone Unavailable
== END 2017-04-25 14:35 | disposition short-term general hospital (02) ==
LOC: ER 11:08
PROVIDERS: General Practice
DX: K91.86 Retained cholelithiasis following cholecystectomy (principal); K91.5 Postcholecystectomy syndrome; J44.9 Chronic obstructive pulmonary disease, unspecified; Z87.891 Personal history of nicotine dependence

== ENCOUNTER 2017-06-13 13:49 | Day surgery (SDC) | payer BC ==
[~2017-06-13] VITALS: Ht 170.2 cm; Wt 106.6 kg
[~2017-06-13 13:49] MED LIST: AMLODIPINE BESY PO; AUGMENTIN 875-1 EACH PO; NORCO 325 MG-51 TAB PO
--- NOTE | 2017-06-13 16:13 | Operative Note ---
ERCP ([facility]) Procedure date: 06/13/17 Date of : 66 Procedure:ERCP Endoscopic retrograde cholangiography with stent removal, extension of biliary sphincterotomy, sphincteroplasty (TTS balloon dilation) and balloon sweep stone extraction Indications: Mr. Schwartz is a 46-year-old gentleman with severe acute cholecystitis on March 27, 2017. At that time, he had a total bilirubin of 5.4 and a distal CBD stone. The patient underwent initial ERCP on April 26, 2017 and had a 10 mm common bile duct stone identified but only fragmented removal. A 10 Mong[place]ian biliary stent was placed subsequent to biliary sphincterotomy and extraction. The patient returns today for complete clearance of the common bile duct. He has had minimal symptoms. Performing Provider: Heike Quinteros MD Referrring Provider: Rhett Jane M.D. Sedation: MAC sedation Procedure: Prior to the procedure, a history and physical exam was performed, and patient medications and allergies were reviewed. The risks and benefits of the procedure and the sedation options and risks were discussed with the patient. All questions were answered and informed consent was obtained. Patient identification and proposed procedure were verified by the physician and the nurse. The patient was placed in a left lateral decubitus position. Throughout the procedure, the patient's blood pressure, pulse, and oxygen saturations were monitored continuously. Findings: The side-viewing endoscope was passed directly into the upper esophagus and advanced to the second portion of the duodenum. The esophagus, stomach and duodenum were grossly normal. The Shabbir stent was removed with a snare and pulled out the oropharynx. The side-viewing endoscope was then directed back into the second portion of the duodenum. The common bile duct was selectively cannulated. The cholangiogram did show the appearance of a 10 mm rounded filling defect distally which was remaining in place. It was difficult to open the sphincterotomy further but I did extend the biliary sphincterotomy a couple of millimeters. Next, I did do TTS balloon dilation/sphincteroplasty of the ampulla to 6 mm maximally. It did this with a TTS hydrostatic balloon. Lastly, I did use a 9-12 mm sweeping balloon insufflated at the hilum and pulled in a retrograde fashion with direct removal of the 10 mm greenish brown common bile duct stone which was extracted from the bile duct. The balloon catheter was then placed into the distal CBD and inflated again. A repeat cholangiogram showed no further filling defects and the remainder of the CBD and common hepatic duct were normal with no sludge or filling defects. The intrahepatic biliary system was normal. The cystic duct stump was normal with no leak or defect. The pancreatic duct was not cannulated intentionally. Impressions: 1. 10 mm common bile duct stone status post extension of sphincterotomy/ sphincteroplasty and balloon extraction Recommendations: The patient should have long-term clinical improvement. I will discuss the findings with the patient and family. Complications: None EBL (ml): 0 at 1612
--- NOTE | 2017-06-13 16:46 | RADIOLOGY REPORT PS360 ---
ERCP RADIOLOGIC CLINICAL INDICATION: BILIARY STENT ORDERING PHYSICIAN: HEIKE GOODWIN PATIENT AGE: 46 years Fluoroscopy time: 1 minute and 38 seconds COMPARISON: None FINDINGS: There are 5 images submitted with the C-arm. Image 1 and 2 shows a biliary stent in place. Catheter was inserted into the common bile duct over a wire and contrast injected. There is a prominent filling defect along the distal aspect of the common bile duct consistent with a common duct stone. Proximal to distal filling defect there are multiple small filling defects in the mid aspect of the common bile duct and could be due to small stones or air bubbles . Common bile duct has a somewhat irregular appearance in its mid aspect. Please correlate with fluoroscopic findings. Image 4 shows balloon dilatation of the common duct. IMPRESSION: Choledocholithiasis.
[2017-06-13 17:07] VITALS: BP 142/88
== END 2017-06-13 17:10 | disposition home or self-care (01) ==
LOC: SDC 13:49
PROVIDERS: Internal Medicine Gastroenterology
PROC: 0CP Mouth and Throat, Removal (ICD-10-PCS; 2017-06-13)
PROC: 0F798ZZ Dilation of Common Bile Duct, Via Natural or Artificial Opening Endoscopic (ICD-10-PCS; principal; 2017-06-13 15:00)
DX: K80.01 Calculus of gallbladder with acute cholecystitis with obstruction (principal)
CPT/HCPCS: C1726